=== PATIENT | female | born 1960 | race Two or more races ===

== ENCOUNTER 2024-08-20 10:10 | Outpatient (RCR) | payer OTHER, SELFPAY ==
--- NOTE | 2024-08-20 13:11 | CTCFLWUP_ITS ---
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 I reviewed Dr. aEston de la rosa and appreciated co nsult. Patient do not have any new complaints. Patient is scheduled for PET CT scan and bone marrow biopsy labs were drawn on August 15, 2018. Platelet count is 67,000. Treated with prednisone 07/18/2018: Platelet count 12,000. 07/25/2018: Platelet count 10,000. 09/11/2018: Patient has been taking prednisone 60 mg p.o. daily for last 4 weeks. 10/14/2018: Platelet count 26,000. 11/11/2018: Bone marrow biopsy and aspiration showed increased number of megakaryocytes. 11/26/2018: Platelet count 24,000. 12/01/2018?12/22/2018: Patient received 4 weekly doses of Rituxan. 12/08/2018: Platelet count 58,000. 03/03/2019: Platelet count 17,000. 03/10/2019: Promacta 50 mg p.o. daily started. 03/24/2019: Platelets 154,000AST 17 (0?32). . ALT 35 (0?32), 05/13/2019: Platelet count 692,000. ALT 63 (0?32) AST 73 (0?40), 05/15/2019: Decrease Promacta 25 mg p.o. Daily in view of the elevated liver function test. 05/29/2019: Platelet count 306,000, AST 39, ALT 42 05/02/2020: Platelet count 310,000, AST 41, ALT 53, T bili 0.4. 05/12/2020: CT scan of the abdomen and pelvis with contrast showed hepatomegaly measuring 19 cm. Splee n dimension was 13 cm. 05/13/2020: Patient was tested positive for Covid 19. She was asymptomatic. 05/26/2020 platelets 285,000, WBC 8.4, hemoglobin 12.6. August 15, 2020: Covid test negative. 08/29/2020: Platelet count 228,000. 10/28/2020: Platelet count 299,000, WBC 11.1, hemoglobin 13.7. 12/03/2020: Patient had shingles infection of the right lower chest. 12/05/2020: Platelet count 181,000, hemoglobin 13.1, WBC 5.8. 03/24/2021: Platelet count a hundred and nine thousand. Patient continues to be on Promacta 25 mg p.o . daily. 06/23/2021: Platelet count 251,000. 08/28/2021: Platelet count 290,000, hemoglobin 13.0, WBC 12.3. 09/26/2021: Laparoscopic splenectomy. 10/06/2021: Platelet count 825,000. 01/25/2022: Platelet count 520,000. 07/06/2022: Platelet count 425,000. 12/27/2022: Platelets 386,000, hemoglobin 15.1, MCV 90, WBC 11.7, ANC 5.4. 06/25/2023: Platelet count 420,000, WBC 17.0, ANC 10.0, hemoglobin 16.0. 07/02/2023: Platelet count 390,000, WBC 12.0, ANC 6.0, hemoglobin 16.3; T-cell large granular lymphoc ytes/T?LGLs 07/02/2023: Flow cytometry 07/02/2023: BCR-ABL 08/26/2023: Platelets 390,000, WBC 12.0, ANC 6.0, hemoglobin 16.3 11/22/2023: Platelets 372,000, WBC 12.6, ANC 6.0, hemoglobin 15.8 03/11/2024: Platelets 370,000, WBC 11.5, ANC 5.9, hemoglobin 15.0, MCV 92 06/15/2024: Platelets 385,000, WBC 12.2, ANC 5.1, hemoglobin 16.0, MCV 94, lymphs absolute 6.0 DIAGNOSIS: ITP (07/18/2018) failed on prednisone and rituximab. Responded well to Promacta. 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 Patient was asymptomatic. November 2020: Right lower chest shingles infection. T-cell large granular lymphocytes/ T- LGLs, 07/02/2023. 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 amitriptyline - 25 mg 1 tab Daily 2. atorvastatin - 20 mg 1 tab Daily 3. Basaglar KwikPen U-100 Insulin - 100 unit/mL (3 mL) 60 Units Daily 4. HumuLIN BR - 100 unit/mL 20 Unit Twice a Day 5. Jardiance - 25 mg 1 tab Daily 6. loratadine - 10 mg 1 tab Daily 7. losartan-hydrochlorothiazide - 100-25 mg 1 tab Daily 8. metFORMIN - 1,000 mg 1 tab Daily 9. Ozempic - 0.25 mg or 0.5 mg(2 mg/1.5 mL) 0.25 mg As directed Medications Last Reconciled by Robert Hernandez MA on 08/20/2024 ALLERGIES: No Known Drug Allergies REVIEW OF SYSTEMS: A complete 14-point review of systems was performed and is negative except as noted in interval histo ry. PHYSICAL EXAMINATION: VITAL SIGNS: Temperature?98.2, B/P?129/85, Oxygen?Saturation?97% Weight?203?lbs PAIN: 0 - No pain GENERAL APPEARANCE: Appears well, in no apparent distress, appropriately interactive. HEENT: Normocephalic, no temporal wasting, normal conjunctiva, no scleral icterus, normal hearing, li ps without lesions, neck normal range of motion. CARDIOVASCULAR: Not assessed. PULMONARY: Normal respiratory effort, no respiratory distress or use of accessory muscles, speaking i n full sentences, no tachypnea. EXTREMITIES: No pedal edema or cyanosis. SKIN: Normal skin appearance. NEUROLOGIC: Alert and ORIENTED x4. PSHYCHIATRIC: Appropriate affect, mood normal, behavior normal, intact thought and speech. LABORATORY DATA: I have personally reviewed and interpreted each of Ms. Rahman?s relevant lab tests findings are b elow: 08/18/2024 Labs shows WBC 11.8 hemoglobin 16.2 platelets 402 glucose 86 creatinine 0.57 IMPRESSION/PLAN: #1 ITP Patient has been treated for her ITP with prednisone and rituximab Patient was not responding to prednisone and Rituxan and was started on Promacta Patient also have splenectomy done on 09/26/2021 Patient's platelets are now normal Continue Promacta #2 T cells Patient was noted to have larger granular lymphocytes or T-LGL's on her peripheral smear Patient need bone marrow biopsy and PET CT scan Patient is already planned for the same by Dr. Elaine Reilly in [facility] CMP RETURN TO CLINIC: RTC in 2 months BILLING AND COMPLIANCE: I reviewed external records from providers outside my specialty as summarized above. I spent a total of 50 minutes on this patient?s care on the day of their visit excluding time spent related to any bi lled procedures. This time includes time spent with the patient as well as time spent documenting in the medical record, reviewing patients records and tests, obtaining history, placing orders, communi cating with other healthcare professionals, counseling the patient, family or caregiver, and/or care coordination for the diagnoses above. Electronically Signed by: Gurpreet Guevara MD T: 1:08 PM CC: PCP: Raghu Isaacs Referring: Raghu Isaacs This document was completed utilizing speech recognition software. Grammatical errors, random word in sertions, pronoun errors, and incomplete sentences are an occasional consequence of this system due t o software limitations, ambient noise, and hardware issues. Any formal questions or concerns about th e content, text or information contained within the body of this dictation should be directly address ed to the provider for clarification.
== END 2024-09-08 23:59 | disposition home or self-care (01) ==
LOC: SCTC 10:10
PROVIDERS: PCP Family Medicine; Referring Provider Family Medicine; Visit Provider Internal Medicine Hematology & Oncology
DX: D69.3 Immune thrombocytopenic purpura (principal)
CPT/HCPCS: 99213; G0463

== ENCOUNTER 2024-10-22 11:12 | Outpatient (RCR) | payer OTHER, SELFPAY ==
--- NOTE | 2024-11-08 14:58 | CTCFLWUP_ITS ---
Patient: ROBERT RAHMAN : 1960 Page 4 of 5 FOLLOW UP NOTE DATE OF SERVICE: 10/22/2024 NAME: ROBERT RAHMAN ACCOUNT: [id number] : 1960 AGE: 64 INTERVAL HISTORY: Patient was recently seen by blind eyeletter at [place]. I reviewed Dr. Mccormack note and appreciated consult. Patient do not have any new complaints. Patient is scheduled for PET CT scan and bone marrow biopsy labs were drawn on August 15, 2018. Platelet count is 67,000. Treated with prednisone 07/18/2018: Platelet count 12,000. 07/25/2018: Platelet count 10,000. 09/11/2018: Patient has been taking prednisone 60 mg p.o. daily for last 4 weeks. 10/14/2018: Platelet count 26,000. 11/11/2018: Bone marrow biopsy and aspiration showed increased number of megakaryocytes. 11/26/2018: Platelet count 24,000. 12/01/2018?12/22/2018: Patient received 4 weekly doses of Rituxan. 12/08/2018: Platelet count 58,000. 03/03/2019: Platelet count 17,000. 03/10/2019: Promacta 50 mg p.o. daily started. 03/24/2019: Platelets 154,000AST 17 (0?32). . ALT 35 (0?32), 05/13/2019: Platelet count 692,000. ALT 63 (0?32) AST 73 (0?40), 05/15/2019: Decrease Promacta 25 mg p.o. Daily in view of the elevated liver function test. 05/29/2019: Platelet count 306,000, AST 39, ALT 42 05/02/2020: Platelet count 310,000, AST 41, ALT 53, T bili 0.4. 05/12/2020: CT scan of the abdomen and pelvis with contrast showed hepatomegaly measuring 19 cm. Spleen dimension was 13 cm. 05/13/2020: Patient was tested positive for Covid 19. She was asymptomatic. 05/26/2020 platelets 285,000, WBC 8.4, hemoglobin 12.6. August 15, 2020: Covid test negative. 08/29/2020: Platelet count 228,000. 10/28/2020: Platelet count 299,000, WBC 11.1, hemoglobin 13.7. 12/03/2020: Patient had shingles infection of the right lower chest. 12/05/2020: Platelet count 181,000, hemoglobin 13.1, WBC 5.8. 03/24/2021: Platelet count a hundred and nine thousand. Patient continues to be on Promacta 25 mg p.o. daily. 06/23/2021: Platelet count 251,000. 08/28/2021: Platelet count 290,000, hemoglobin 13.0, WBC 12.3. 09/26/2021: Laparoscopic splenectomy. 10/06/2021: Platelet count 825,000. 01/25/2022: Platelet count 520,000. 07/06/2022: Platelet count 425,000. 12/27/2022: Platelets 386,000, hemoglobin 15.1, MCV 90, WBC 11.7, ANC 5.4. 06/25/2023: Platelet count 420,000, WBC 17.0, ANC 10.0, hemoglobin 16.0. 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 amitriptyline - 25 mg 1 tab Daily 2. atorvastatin - 20 mg 1 tab Daily 3. Basaglar KwikPen U-100 Insulin - 100 unit/mL (3 mL) 60 Units Daily 4. HumuLIN BR - 100 unit/mL 20 Unit Twice a Day 5. Jardiance - 25 mg 1 tab Daily 6. loratadine - 10 mg 1 tab Daily 7. losartan-hydrochlorothiazide - 100-25 mg 1 tab Daily 8. metFORMIN - 1,000 mg 1 tab Daily 9. Ozempic - 0.25 mg or 0.5 mg(2 mg/1.5 mL) 0.25 mg As directed Medications Last Reconciled by Erica Schuster MA on 10/22/2024 ALLERGIES: No Known Drug Allergies REVIEW OF SYSTEMS: A complete 14-point review of systems was performed and is negative except as noted in interval history. PHYSICAL EXAMINATION: VITAL SIGNS: Temperature?98.5, B/P?128/76, Oxygen?Saturation?97% Weight?197.6?lbs PAIN: 0 - No pain ECOG Performance Status: 0 - Asymptomatic and fully active GENERAL APPEARANCE: Appears well, in no apparent distress, appropriately interactive. HEENT: Normocephalic, no temporal wasting, normal conjunctiva, no scleral icterus, normal hearing, lips without lesions, neck normal range of motion. CARDIOVASCULAR: Not assessed. PULMONARY: Normal respiratory effort, no respiratory distress or use of accessory muscles, speaking in full sentences, no tachypnea. EXTREMITIES: No pedal edema or cyanosis. SKIN: Normal skin appearance. NEUROLOGIC: Alert and ORIENTED x4. PSHYCHIATRIC: Appropriate affect, mood normal, behavior normal, intact thought and speech. LABORATORY DATA: I have personally reviewed and interpreted each of the patient?s relevant lab tests, abnormal findings are below: Date 12/22/18 ??GLUCOSE,RANDOM?(mg/dL) 240?H ??BLOOD?UREA?NITROGEN?(mg/dL) 19?H ??CREATININE?(mg/dL) 0.70 ??SODIUM?(mmol/L) 147?H ??POTASSIUM?(mmol/L) 3.0?L ??CHLORIDE?(mmol/L) 109?H ??CrCl?(CandG)?(ml/min) 122.95 ??AST/SGOT?(Unit/L) 13?L ??ALT/SGPT?(Unit/L) 37 ??ALKALINE?PHOSPHATASE?(Unit/L) 59 ??BILIRUBIN,?TOTAL?(mg/dL) 0.6 ??PROTEIN?TOTAL?(gm/dl) 7.2 ??ALBUMIN,?SERUM?(gm/dl) 3.4?L ??GLOBULIN?(gm/dl) 3.8?H ??ALBUMIN/GLOBULIN?RATIO 0.9?L ??CALCIUM,?SERUM?(mg/dL) 8.3?L ??CALCIUM?SERUM?(CORRECTED)?(mg/dL) 8.8 ASSESSMENT/PLAN: #1 ITP Patient has been treated for her ITP with prednisone and rituximab Patient was not responding to prednisone and Rituxan and was started on Promacta Patient also have splenectomy done on 09/26/2021 Patient's platelets are now normal Continue Promacta #2 T cells Patient was noted to have larger granular lymphocytes or T-LGL's on her peripheral smear Patient need bone marrow biopsy and PET CT scan Patient is already planned for the same by Dr. Elaine Reilly in [facility] CMP RETURN TO CLINIC: 6 months BILLING AND COMPLIANCE: I reviewed external records from providers outside my specialty as summarized above. I spent a total of 50 minutes on this patient?s care on the day of their visit excluding time spent related to any billed procedures. This time includes time spent with the patient as well as time spent documenting in the medical record, reviewing patients records and tests, obtaining history, placing orders, communicating with other healthcare professionals, counseling the patient, family or caregiver, and/or care coordination for the diagnoses above. Electronically Signed by: Gurpreet Guevara MD T: 2:56 PM CC: PCP: Gurpreet Guevara Referring: Gurpreet Guevara This document was completed utilizing speech recognition software. Grammatical errors, random word insertions, pronoun errors, and incomplete sentences are an occasional consequence of this system due to software limitations, ambient noise, and hardware issues. Any formal questions or concerns about the content, text or information contained within the body of this dictation should be directly addressed to the provider for clarification.
== END 2024-11-06 23:59 | disposition home or self-care (01) ==
LOC: SCTC 11:12
PROVIDERS: PCP Family Medicine; Referring Provider Internal Medicine Hematology & Oncology; Visit Provider Internal Medicine Hematology & Oncology
DX: D69.3 Immune thrombocytopenic purpura (principal)
CPT/HCPCS: 99213; G0463

== ENCOUNTER 2024-12-03 10:23 | Outpatient (RCR) | payer OTHER, SELFPAY ==
--- NOTE | 2024-12-03 13:32 | CTCFLWUP_ITS ---
Patient: LOLA RAHMAN : 1960 Page 2 of 6 FOLLOW UP NOTE DATE OF SERVICE: 12/03/2024 NAME: LOLA RAHMAN ACCOUNT: [id number] : 1960 AGE: 64 INTERVAL HISTORY: Patient was recently seen by materials research engineer at [place]. I reviewed Dr. Mccormack note and appreciated consult. Patient do not have any new complaints. 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 For last 1 month she has been having subcutaneous bruises in multiple areas. She had a CBC drawn on 07/11/2018. Her platelet count was 11,000's. WBC E is 8.8 and hemoglobin is 12.8. CBC was repeated on 07/18/2018. Her platelet counts were again low at 12,000. Hemoglobin is 13.3 and WBC count is 8.5. A hematology consultation is requested for thrombocytopenia. She denies any other complaints. Denies any cough chest pain shortness of breath abdominal pain or leg cramps. She denies any vaginal bleeding or rectal bleeding. She denies any blood in the urine or stool. 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 acyclovir - 400 mg 1 tab Daily 2. amitriptyline - 25 mg 1 tab Daily 3. atorvastatin - 20 mg 1 tab Daily 4. Basaglar KwikPen U-100 Insulin - 100 unit/mL (3 mL) 60 Units Daily 5. HumuLIN BR - 100 unit/mL 20 Unit Twice a Day 6. Jardiance - 25 mg 1 tab Daily 7. loratadine - 10 mg 1 tab Daily 8. losartan-hydrochlorothiazide - 100-25 mg 1 tab Daily 9. metFORMIN - 1,000 mg 1 tab Daily 10. Ozempic - 0.25 mg or 0.5 mg(2 mg/1.5 mL) 0.25 mg As directed Medications Last Reconciled by Erica Schuster MA on 12/03/2024 ALLERGIES: No Known Drug Allergies REVIEW OF SYSTEMS: A complete 14-point review of systems was performed and is negative except as noted in interval history. PHYSICAL EXAMINATION: VITAL SIGNS: Temperature?99.1, B/P?124/82, Oxygen?Saturation?94% Weight?197?lbs PAIN: 2 - Mild pain ECOG Performance Status: 0 - Asymptomatic and fully active GENERAL APPEARANCE: Appears well, in no apparent distress, appropriately interactive. HEENT: Normocephalic, no temporal wasting, normal conjunctiva, no scleral icterus, normal hearing, lips without lesions, neck normal range of motion. CARDIOVASCULAR: Not assessed. PULMONARY: Normal respiratory effort, no respiratory distress or use of accessory muscles, speaking in full sentences, no tachypnea. EXTREMITIES: No pedal edema or cyanosis. SKIN: Normal skin appearance. NEUROLOGIC: Alert and ORIENTED x4. PSHYCHIATRIC: Appropriate affect, mood normal, behavior normal, intact thought and speech. LABORATORY DATA: I have personally reviewed and interpreted each of the patient?s relevant lab tests, abnormal findings are below: Date 12/15/18 12/22/18 ??WHITE?BLOOD?COUNT?(Thou/mm3) 8.3 11.2?H ??RED?BLOOD?COUNT?(Miln/mm3) 4.60 4.81 ??HEMOGLOBIN?(gm/dl) 12.7 13.3 ??HEMATOCRIT?(%) 39.0 40.9 ??PLATELET?COUNT?(Thou/mm3) 14?LL 40?L ??NEUTROPHILS?%,?AUTO?(%) 79 88?H ??LYMPH?%,?AUTO?(%) 13 9?L ??NEUTROPHILS,?AUTO?(Thou/mm3) 6.5 9.8?H ??GLUCOSE,RANDOM?(mg/dL) 270?H 240?H ??BLOOD?UREA?NITROGEN?(mg/dL) 15 19?H ??CREATININE?(mg/dL) 0.70 0.70 ??SODIUM?(mmol/L) 141 147?H ??POTASSIUM?(mmol/L) 3.5 3.0?L ??CHLORIDE?(mmol/L) 106 109?H ??CrCl?(CandG)?(ml/min) 125.46 122.95 ??AST/SGOT?(Unit/L) 18 13?L ??ALT/SGPT?(Unit/L) 32 37 ??ALKALINE?PHOSPHATASE?(Unit/L) 56 59 ??BILIRUBIN,?TOTAL?(mg/dL) 0.5 0.6 ??PROTEIN?TOTAL?(gm/dl) 6.4 7.2 ??ALBUMIN,?SERUM?(gm/dl) 3.1?L 3.4?L ??GLOBULIN?(gm/dl) 3.3 3.8?H ??ALBUMIN/GLOBULIN?RATIO 0.9?L 0.9?L ??CALCIUM,?SERUM?(mg/dL) 8.6 8.3?L ??CALCIUM?SERUM?(CORRECTED)?(mg/dL) 9.3 8.8 10/22/2024 ASSESSMENT/PLAN: #1 ITP Patient has been treated for her ITP with prednisone and rituximab Patient was not responding to prednisone and Rituxan and was started on Promacta Patient also have splenectomy done on 09/26/2021 Patient's platelets are now normal Continue Promacta #2 T cells Patient was noted to have larger granular lymphocytes or T-LGL's on her peripheral smear Bone marrow biopsy show no maligannacy \pet scan showed ovarian cyst . patient have lots of pain from that Refer to gynecology #3 Shingles Patient have lots of pain from her shingles No active lesions This is a herpetic neuralgia Will treat with acyclovir suppressive dose and gabapentin Advised to follow-up with the primary care CBC CMP ORDERS: Order # Description [id number] RETURN TO CLINIC: I will see her back in the clinic in 3 months. BILLING AND COMPLIANCE: I reviewed external records from providers outside my specialty as summarized above. I spent a total of 50 minutes on this patient?s care on the day of their visit excluding time spent related to any billed procedures. This time includes time spent with the patient as well as time spent documenting in the medical record, reviewing patients records and tests, obtaining history, placing orders, communicating with other healthcare professionals, counseling the patient, family or caregiver, and/or care coordination for the diagnoses above. Electronically Signed by: Gurpreet Guevara MD T: 1:30 PM CC: PCP: Gurpreet Guevara Referring: Gurpreet Guevara This document was completed utilizing speech recognition software. Grammatical errors, random word insertions, pronoun errors, and incomplete sentences are an occasional consequence of this system due to software limitations, ambient noise, and hardware issues. Any formal questions or concerns about the content, text or information contained within the body of this dictation should be directly addressed to the provider for clarification.
== END 2024-12-07 23:59 | disposition home or self-care (01) ==
LOC: SCTC 10:23
PROVIDERS: PCP Family Medicine; Referring Provider Internal Medicine Hematology & Oncology; Visit Provider Internal Medicine Hematology & Oncology
DX: D69.3 Immune thrombocytopenic purpura (principal); N83.209 Unspecified ovarian cyst, unspecified side; B02.9 Zoster without complications
CPT/HCPCS: 99213; G0463

== ENCOUNTER 2025-02-18 11:27 | Outpatient (RCR) | payer OTHER, SELFPAY ==
--- NOTE | 2025-02-28 22:20 | CTCFLWUP_ITS ---
Patient: LOLA RAHMAN : 1960 Page 6 of 7 FOLLOW UP NOTE DATE OF SERVICE: 02/18/2025 NAME: LOLA RAHMAN ACCOUNT: [id number] : 1960 AGE: 64 INTERVAL HISTORY: Subjective: Chief Complaint Ongoing shingles pain, high hemoglobin levels History of Present Illness Lola Isaacs presents with ongoing shingles-related pain and elevated hemoglobin levels. The patient reports experiencing shingles with associated pain, which has been improving slowly. She is currently taking gabapentin 300 mg twice daily for pain management, which was previously prescribed at a higher dose (600 mg three times daily) but caused dizziness, leading to discontinuation after a year. The patient is also taking acyclovir tablets twice daily, in the morning and evening, as prescribed for shingles treatment. The patient reports that her pain is a little better than before but still present. She inquires about the possibility of increasing her medication dosage or adding another medication to manage the pain more effectively. The slow improvement in her condition is impacting her daily life, though the extent of this impact is not explicitly stated. Regarding treatment adherence, the patient reports taking her medications as prescribed, including both gabapentin and acyclovir. However, she mentions that Prometa was discontinued after a procedure, though the details of this procedure are not provided. The patient has had recent healthcare interactions, including a visit to a healthcare facility [facility] where she was prescribed the higher dose of gabapentin. She also reports seeing Dr. Shaver at the end of November or beginning of December. However, she has not followed up with the tuckpointer as previously recommended for an ovarian cyst, nor has she seen Dr. Shaver for the PET-CT scan ordered in September. Medications and Supplements - Prometa - Discontinued after procedure. - Gabapentin 300 mg by mouth twice daily - For shingles pain. - Previously took 600 mg 3 times a day but felt very dizzy and stopped after a year. - Acyclovir tablet twice daily - For shingles. - Taken in the morning and evening. Review of Systems General: Positive for fatigue. Skin: Positive for shingles. Neurological: Positive for dizziness (historical). Other: Positive for pain related to shingles. 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 For last 1 month she has been having subcutaneous bruises in multiple areas. She had a CBC drawn on 07/11/2018. Her platelet count was 11,000's. WBC E is 8.8 and hemoglobin is 12.8. CBC was repeated on 07/18/2018. Her platelet counts were again low at 12,000. Hemoglobin is 13.3 and WBC count is 8.5. A hematology consultation is requested for thrombocytopenia. She denies any other complaints. Denies any cough chest pain shortness of breath abdominal pain or leg cramps. She denies any vaginal bleeding or rectal bleeding. She denies any blood in the urine or stool. 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 acyclovir - 400 mg 1 tab twice Daily 2. acyclovir - 5 % 1 gm Daily 3. amitriptyline - 25 mg 1 tab Daily 4. atorvastatin - 20 mg 1 tab Daily 5. Basaglar KwikPen U-100 Insulin - 100 unit/mL (3 mL) 60 Units Daily 6. gabapentin - 300 mg 1 Capsule three times daily as needed 7. HumuLIN BR - 100 unit/mL 20 Unit Twice a Day 8. Jardiance - 25 mg 1 tab Daily 9. loratadine - 10 mg 1 tab Daily 10. losartan-hydrochlorothiazide - 100-25 mg 1 tab Daily 11. metFORMIN - 1,000 mg 1 tab Daily 12. Ozempic - 0.25 mg or 0.5 mg(2 mg/1.5 mL) 0.25 mg As directed Medications Last Reconciled by Lola Hernandez MA on 02/18/2025 ALLERGIES: No Known Drug Allergies REVIEW OF SYSTEMS: A complete 14-point review of systems was performed and is negative except as noted in interval history. PHYSICAL EXAMINATION: VITAL SIGNS: Temperature?98, B/P?141/85, Oxygen?Saturation?95% Weight?200?lbs PAIN: 0 - No pain ECOG Performance Status: 0 - Asymptomatic and fully active GENERAL APPEARANCE: Appears well, in no apparent distress, appropriately interactive. HEENT: Normocephalic, no temporal wasting, normal conjunctiva, no scleral icterus, normal hearing, lips without lesions, neck normal range of motion. CARDIOVASCULAR: Not assessed. PULMONARY: Normal respiratory effort, no respiratory distress or use of accessory muscles, speaking in full sentences, no tachypnea. EXTREMITIES: No pedal edema or cyanosis. SKIN: Normal skin appearance. NEUROLOGIC: Alert and ORIENTED x4. PSHYCHIATRIC: Appropriate affect, mood normal, behavior normal, intact thought and speech. LABORATORY DATA: I have personally reviewed and interpreted each of the patient?s relevant lab tests, abnormal findings are below: Date 12/15/18 12/22/18 ??WHITE?BLOOD?COUNT?(Thou/mm3) 8.3 11.2?H ??RED?BLOOD?COUNT?(Miln/mm3) 4.60 4.81 ??HEMOGLOBIN?(gm/dl) 12.7 13.3 ??HEMATOCRIT?(%) 39.0 40.9 ??PLATELET?COUNT?(Thou/mm3) 14?LL 40?L ??NEUTROPHILS?%,?AUTO?(%) 79 88?H ??LYMPH?%,?AUTO?(%) 13 9?L ??NEUTROPHILS,?AUTO?(Thou/mm3) 6.5 9.8?H ??GLUCOSE,RANDOM?(mg/dL) 270?H 240?H ??BLOOD?UREA?NITROGEN?(mg/dL) 15 19?H ??CREATININE?(mg/dL) 0.70 0.70 ??SODIUM?(mmol/L) 141 147?H ??POTASSIUM?(mmol/L) 3.5 3.0?L ??CHLORIDE?(mmol/L) 106 109?H ??CrCl?(CandG)?(ml/min) 125.46 122.95 ??AST/SGOT?(Unit/L) 18 13?L ??ALT/SGPT?(Unit/L) 32 37 ??ALKALINE?PHOSPHATASE?(Unit/L) 56 59 ??BILIRUBIN,?TOTAL?(mg/dL) 0.5 0.6 ??PROTEIN?TOTAL?(gm/dl) 6.4 7.2 ??ALBUMIN,?SERUM?(gm/dl) 3.1?L 3.4?L ??GLOBULIN?(gm/dl) 3.3 3.8?H ??ALBUMIN/GLOBULIN?RATIO 0.9?L 0.9?L ??CALCIUM,?SERUM?(mg/dL) 8.6 8.3?L ??CALCIUM?SERUM?(CORRECTED)?(mg/dL) 9.3 8.8 Labs from 02/12/2025 shows white WBC 13.5 hemoglobin 16.2 platelets 369 lymphocytes 5.7 high WBC high at 13.5 creatinine 0.50 sodium 145 high alk phos 88 AST 25 ALT 22 ASSESSMENT/PLAN: Lola Isaacs, a female patient with a history of shingles, presents with ongoing pain and elevated hemoglobin levels. Shingles with Post-Herpetic Neuralgia Assessment: Patient reports ongoing pain from shingles, though slightly improved. Currently taking gabapentin 300 mg twice daily and acyclovir twice daily, which has provided some relief but not complete resolution of symptoms. Previous attempt at higher gabapentin dose (600 mg TID) resulted in dizziness, leading to discontinuation after one year. Plan: - Increase gabapentin to 300 mg TID - Continue acyclovir as prescribed (twice daily) - Prescribe acyclovir cream for topical use - Refer to infectious disease specialist for further management of shingles - Follow up in 4 weeks to assess response to treatment changes Elevated Hemoglobin Assessment: Patient's hemoglobin levels are increasing, potentially due to inadequate oxygenation during sleep. A PET-CT scan was previously ordered in September, but results are not mentioned. Differential diagnosis includes blood disorders and sleep-related breathing disorders. Plan: - Initiate phlebotomy if hemoglobin continues to rise - Refer to sleep specialist for evaluation of potential sleep-related breathing disorders - Follow up in 4 weeks to reassess hemoglobin levels and utilization review coordinator recommendations Ovarian Cyst Assessment: Patient was previously advised to see a tuckpointer for an ovarian cyst but has not followed through with this recommendation. 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 patient have lots of pain from that Refer to gynecology ORDERS: Order # Description [id number] CBC with Auto Diff [id number] CRISTIN - 2 Mutation Quant + Testosterone; Total + Erythropoieten Level [id number] Therapeutic Phlebotomy, 1 Unit RETURN TO CLINIC: 2 to 3 weeks BILLING AND COMPLIANCE: I reviewed external records from providers outside my specialty as summarized above. I spent a total of 50 minutes on this patient?s care on the day of their visit excluding time spent related to any billed procedures. This time includes time spent with the patient as well as time spent documenting in the medical record, reviewing patients records and tests, obtaining history, placing orders, communicating with other healthcare professionals, counseling the patient, family or caregiver, and/or care coordination for the diagnoses above. Electronically Signed by: {Object.Sanct_ID*PnP.NameFL@M}, {Object.Sanct_ID*PnP.Suffix@U} D: {Object.Sanct_Date} T: {Object.Sanct_Time} CC: PCP: Raghu Isaacs Referring: Raghu Isaacs This document was completed utilizing speech recognition software. Grammatical errors, random word insertions, pronoun errors, and incomplete sentences are an occasional consequence of this system due to software limitations, ambient noise, and hardware issues. Any formal questions or concerns about the content, text or information contained within the body of this dictation should be directly addressed to the provider for clarification.
== END 2025-03-08 23:59 | disposition home or self-care (01) ==
LOC: SCTC 11:27
PROVIDERS: PCP Family Medicine; Referring Provider Family Medicine; Visit Provider Internal Medicine Hematology & Oncology
DX: B02.29 Other postherpetic nervous system involvement (principal); D69.3 Immune thrombocytopenic purpura; N83.209 Unspecified ovarian cyst, unspecified side; R71.8 Other abnormality of red blood cells; Z90.81 Acquired absence of spleen
CPT/HCPCS: 99212; G0463

== ENCOUNTER 2025-03-22 11:12 | Outpatient (AMB) | payer OTHER, SELFPAY ==
--- NOTE | 2025-03-22 11:21 | GYNCLNT_ITS ---
Vital Signs 03/22/25 11:40 Height 1.57 m Height Method Stated Weight 88.621 kg Weight Measurement Method Standing Scale BMI 35.7 BP 122/75 Blood Pressure Source Automatic Cuff Blood Pressure Location Left Upper Arm Position Sitting Respiration 18 Pulse 90 Pulse Source Monitor Temp 96.4 F L Temp Source Oral Pulse Oximetry (%) 96 Oxygen Delivery Method Room Air Allergies/Home Meds Allergies & Medications Allergies No Known Allergies Allergy (Verified 03/22/25 11:41) Medication Reconciliation eltrombopag olamine 25 mg tablet (Promacta) 25 mg PO QDAY 06/13/20 [History Confirmed 03/22/25] amitriptyline 10 mg tablet 10 mg PO QDAY 09/25/21 [History Confirmed 03/22/25] atorvastatin 20 mg tablet 20 mg PO QDAY 09/25/21 [History Confirmed 03/22/25] empagliflozin 25 mg tablet (Jardiance) 25 mg PO QAM 09/25/21 [History Confirmed 03/22/25] insulin glargine 100 unit/mL (3 mL) subcutaneous pen (Basaglar KwikPen U-100 Insulin) 60 unit subcut QAM 09/25/21 [History Confirmed 03/22/25] losartan 100 mg-hydrochlorothiazide 25 mg tablet 1 tab PO QDAY 09/25/21 [History Confirmed 03/22/25] semaglutide 1 mg/dose (2 mg/1.5 mL) subcutaneous pen injector (Ozempic) 1 mg subcut QWEEK 09/25/21 [History Confirmed 03/22/25] sitagliptin phos 100 mg-metformin ER 1,000 mg tablet,extend rel 24h mp (Janumet XR) 1 tab PO HS 09/25/21 [History Confirmed 03/22/25] amoxicillin 875 mg-potassium clavulanate 125 mg tablet (Augmentin) 1 tab PO BID #10 tabs 10/06/21 [Rx Confirmed 03/22/25] aspirin 81 mg capsule 81 mg PO QDAY #30 caps 10/06/21 [Rx Confirmed 03/22/25] doxycycline hyclate 100 mg tablet 100 mg PO BID #10 tabs 10/06/21 [Rx Confirmed 03/22/25] Intake Visit Data Collection New Patient or Established: Established Patient (seen at [facility] within 3 years) Reason for Visit:: OVARIAN CYST Seen by Clinical Staff ONLY (RN/MA): No Top Loader Required: Yes Top Loader's name/title: VIOLETTA MASTERSON Do You Feel Safe at Home: Yes Authorities Contacted: N/A PCP or OBGYN visit in last 3 months: Yes Hx Now: No Are you currently on any form of Control: No Pain Present Currently: No Pain Scale Used: Sainz-Hutchison/Numerical Pain scale:: 0 Smoking Status Smoking Status: Never smoker Blood Bank Order Control 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 history Blood Bank Order Control Clerk History Menopausal: Yes If menopausal, at what age did it occur: 55 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 1. Little interest or pleasure in doing things: not at all 2. Feeling down, depressed, or hopeless: not at all Total score: 0 PHQ-9 3. Trouble falling or staying asleep, or sleeping too much: Not at all 4. Feeling tired or having little energy: Not at all 5. Poor appetite or overeating: Not at all 6. Feeling bad about yourself - or that you are a failure or have let yourself or your family down: Not at all 7. Trouble concentrating on things, such as reading the newspaper or watching television: Not at all 8. Moving or speaking so slowly that other people could have noticed? - Or the opposite - being so fidgety or restless that you have been moving around a lot more than usual: not at all 9. Thoughts that you would be better off or of hurting yourself in some way: Not at all Total score: 0 Source: Developed by Drs. Calvin Leal, Selma Marin, Ruddy Ribera and colleagues, with an educational deion from [employer]. Depression screen completed yes Social History Living Situation History Housing: House Tobacco History Smoking Status: Never smoker Alcohol History Alcohol Intake: Never Domestic Abuse History Do You Feel Safe at Home: Yes History of Present Illness HPI Narrative Lola Isaacs presents for evaluation of a right ovarian cyst discovered on imaging. She has a complex medical history including diabetes, hypertension, immune thrombocytopenia (ITP), recent treatment for shingles-related pain, and elevated hemoglobin levels. The patient reports experiencing back pain, which she associates with household activities such as sweeping or bumping into objects. However, it is noted that the ovarian cyst is unlikely to be the cause of her back pain. Lola has been aware of the cyst for some time, with imaging studies from 2021, 2022, and 2024 consistently showing its presence. The most recent pelvic ultrasound from 2021 revealed a septated right ovarian cystic mass measuring 5.6 x 4.6 x 5.2 centimeters. A subsequent MRI confirmed the presence of the cyst without any concerning features. Lola's medical history is significant for ITP, previously treated with prednisone and rituximab. She initially did not respond to prednisone and was started on Promacta. In 2021, she underwent a splenectomy, after which her platelet counts normalized. She has a history of intermittent gum bleeds and nosebleeds, with platelet counts as low as 12,000 in the past year. Additionally, Lola has been diagnosed with large granular lymphocytes and has undergone bone marrow biopsy, which did not show any malignancy. The patient is currently completing treatment for postherpetic neuralgia following a shingles outbreak. Her current medications include metformin, Ozempic, losartan, loratadine, Jardiance, Basaglar, Humulin, gabapentin (300mg TID), amitriptyline, and acyclovir. ROS: Musculoskeletal: Positive for back pain, exacerbated by housework activities like sweeping. Diagnostic Test Results and Labs: - Platelet count: as low as 12,000 (within the last year) - Pelvic ultrasound (02/2022): Right ovarian cystic mass, septated, measuring 5.6 x 4.6 x 5.2 cm - MRI (date not specified): Uterus: 9 x 4 x 5 cm Endometrial stripe: not thickened No discrete uterine mass Right ovarian cyst: septated, no mural thickening - Bone Mineral Density (09/2022): Osteopenia on lumbar and hip measurements - PET scan (09/26/2024): Avid left parotid lesion Mild FDG uptake in cervical chain lymph nodes Mild pulmonary edema Cholelithiasis Mildly FDG-avid lymph node in right common iliac chain: 1.1 x 0.8 cm Right ovarian cyst: 5.6 cm Mild FDG uptake throughout bone marrow Exam General General Appearance: alert, in no apparent distress and healthy appearing Head Head exam: atraumatic Neck Neck exam: Present normal inspection and trachea midline Chest Chest inspection: Present normal inspection and symmetric chest wall rise External exam: Present normal external exam; Absent tenderness Neuro Neurological exam: Present oriented X3 Psych Psychiatric exam: Present normal affect and normal mood Office Procedures OB Clinic LOC & Office Proc's Nursing/Assessment Patient Status: Established Patient OB Clinic Nursing Assessment: Medication Reconciliation, Update PMH in EMR and Vital Signs OB Clinic Coordination of Care: Complex Care and Chronic Disease 1-5, Consent,records obtained, informed consent, Education Simp Pt/Fam, Lab and Imaging orders, Results/Orders obtained and Staff clarify orders Established Patient Charge Established Patient Point Assignment: 105 Established Patient Point Charge: EP Level 3 (80-115) Assessment & Plan Diagnosis / Problem List (1) Lymphocytic leukemia: Status: Acute (2) Acute ITP: Status: Acute (3) Right ovarian cyst: Status: Acute Plan Right ovarian cyst Assessment: Persistent right ovarian cyst measuring 5.6 x 4.6 x 5.2 cm, initially identified on pelvic ultrasound in February 2022. MRI confirmed septated cyst without mural thickening. PET scan () reaffirmed 5.6 cm right ovarian cyst. Cyst stable in size since 2021. Patient reports back pain with activities like sweeping, likely unrelated to cyst. Malignancy less likely but not ruled out. 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 PET scan () showed avid left parotid lesion, mild FDG uptake in cervical chain lymph nodes, mildly FDG-avid lymph node in right common iliac chain (1.1 x 0.8 cm). Mild FDG uptake throughout bone marrow. Findings suggest ongoing disease activity. Plan: - Continue follow-up with hematology/oncology for management Immune thrombocytopenia (ITP) Assessment: History of ITP with platelet counts as low as 12,000 in past year. Previously treated with prednisone, rituximab, then Promacta. Splenectomy in 2021, now normal platelet counts. Large granular lymphocytes noted on peripheral smear, bone marrow biopsy negative for malignancy. Plan: - Continue current management - Follow up with hematology as scheduled Postherpetic neuralgia Assessment: Currently finishing treatment following shingles. Plan: - Continue gabapentin 300 mg TID as prescribed Osteopenia Assessment: Bone mineral density scan from September 2022 showed osteopenia in lumbar and hip measurements. Plan: - Continue current management
[2025-03-22 11:40] VITALS: BP 122/75; PULSE 90; RESP 18; TEMP 35.8; O2SAT 96; BMI 35.7
== END 2025-03-22 11:54 | disposition home or self-care (01) ==
LOC: HODSOBC 11:12
PROVIDERS: Supervising Provider Obstetrics & Gynecology; Visit Provider Obstetrics & Gynecology
DX: N83.201 Unspecified ovarian cyst, right side (principal); C91.60 Prolymphocytic leukemia of T-cell type not having achieved remission; D69.3 Immune thrombocytopenic purpura; B02.29 Other postherpetic nervous system involvement; M85.89 Other specified disorders of bone density and structure, multiple sites; E11.9 Type 2 diabetes mellitus without complications; I10 Essential (primary) hypertension; Z79.4 Long term (current) use of insulin; Z79.84 Long term (current) use of oral hypoglycemic drugs; Z79.85 Long-term (current) use of injectable non-insulin antidiabetic drugs; Z79.82 Long term (current) use of aspirin; Z79.899 Other long term (current) drug therapy
CPT/HCPCS: 99213; G0463

== ENCOUNTER 2025-04-05 13:48 | Outpatient (RCR) | payer OTHER, SELFPAY ==
[2025-03-15 14:50] LABS: Basophils # (Auto) 0.1 Thou/mm3 (0.0-0.2); Basophils % (Auto) 1 % (0-2.5); Eosinophils # (Auto) 0.2 Thou/mm3 (0.0-0.5); Eosinophils % (Auto) 2 % (0-10); Hematocrit 46.4 % (36.0-46.0); Hemoglobin 16.0 g/dL (12.0-16.0); Immature Granulocytes Auto 0.04 Thou/mm3 (0.00-0.00); Lymphocytes # (Auto) 5.0 Thou/mm3 (1.0-4.8); Lymphocytes % (Auto) 35 % (10-50); Mean Corpuscular HGB Conc 34.5 g/dl (31.0-37.0); Mean Corpuscular Hemoglobin 30.8 pg (25.0-35.0); Mean Corpuscular Volume 89 fL (80-100); Monocytes # (Auto) 1.1 Thou/mm3 (0.0-0.8); Monocytes % (Auto) 8 % (0-12); Neutrophils # (Auto) 7.8 Thou/mm3 (1.8-7.7); Neutrophils % (Auto) 55 % (37-80); Nucleated Red Blood Cell # 0.00 Thou/mm3 (0.00-0.00); Nucleated Red Blood Cell % 0 /100 WBC (0); Platelet Count 331 Thou/mm3 (140-440); RDW Standard Deviation 48.6 fL (36.4-46.3); Red Blood Count 5.19 Miln/mm3 (4.00-5.20); White Blood Count 14.2 Thou/mm3 (3.6-11.0)
[2025-03-22 15:10] LABS: Basophils # (Auto) 0.1 Thou/mm3 (0.0-0.2); Basophils % (Auto) 1 % (0-2.5); Eosinophils # (Auto) 0.2 Thou/mm3 (0.0-0.5); Eosinophils % (Auto) 1 % (0-10); Hematocrit 47.0 % (36.0-46.0); Hemoglobin 15.9 g/dL (12.0-16.0); Immature Granulocytes Auto 0.04 Thou/mm3 (0.00-0.00); Lymphocytes # (Auto) 5.3 Thou/mm3 (1.0-4.8); Lymphocytes % (Auto) 36 % (10-50); Mean Corpuscular HGB Conc 33.8 g/dl (31.0-37.0); Mean Corpuscular Hemoglobin 31.2 pg (25.0-35.0); Mean Corpuscular Volume 92 fL (80-100); Monocytes # (Auto) 1.0 Thou/mm3 (0.0-0.8); Monocytes % (Auto) 7 % (0-12); Neutrophils # (Auto) 8.0 Thou/mm3 (1.8-7.7); Neutrophils % (Auto) 55 % (37-80); Nucleated Red Blood Cell # 0.00 Thou/mm3 (0.00-0.00); Nucleated Red Blood Cell % 0 /100 WBC (0); Platelet Count 330 Thou/mm3 (140-440); RDW Standard Deviation 50.5 fL (36.4-46.3); Red Blood Count 5.09 Miln/mm3 (4.00-5.20); White Blood Count 14.6 Thou/mm3 (3.6-11.0)
[2025-03-29 15:18] LABS: Basophils # (Auto) 0.1 Thou/mm3 (0.0-0.2); Basophils % (Auto) 1 % (0-2.5); Eosinophils # (Auto) 0.1 Thou/mm3 (0.0-0.5); Eosinophils % (Auto) 1 % (0-10); Hematocrit 45.4 % (36.0-46.0); Hemoglobin 15.1 g/dL (12.0-16.0); Immature Granulocytes Auto 0.03 Thou/mm3 (0.00-0.00); Lymphocytes # (Auto) 4.5 Thou/mm3 (1.0-4.8); Lymphocytes % (Auto) 38 % (10-50); Mean Corpuscular HGB Conc 33.3 g/dl (31.0-37.0); Mean Corpuscular Hemoglobin 31.1 pg (25.0-35.0); Mean Corpuscular Volume 93 fL (80-100); Monocytes # (Auto) 0.9 Thou/mm3 (0.0-0.8); Monocytes % (Auto) 7 % (0-12); Neutrophils # (Auto) 6.4 Thou/mm3 (1.8-7.7); Neutrophils % (Auto) 53 % (37-80); Nucleated Red Blood Cell # 0.00 Thou/mm3 (0.00-0.00); Nucleated Red Blood Cell % 0 /100 WBC (0); Platelet Count 328 Thou/mm3 (140-440); RDW Standard Deviation 49.9 fL (36.4-46.3); Red Blood Count 4.86 Miln/mm3 (4.00-5.20); White Blood Count 12.0 Thou/mm3 (3.6-11.0)
[2025-04-05 14:22] LABS: Basophils # (Auto) 0.1 Thou/mm3 (0.0-0.2); Basophils % (Auto) 1 % (0-2.5); Eosinophils # (Auto) 0.1 Thou/mm3 (0.0-0.5); Eosinophils % (Auto) 1 % (0-10); Hematocrit 44.3 % (36.0-46.0); Hemoglobin 14.6 g/dL (12.0-16.0); Immature Granulocytes Auto 0.03 Thou/mm3 (0.00-0.00); Lymphocytes # (Auto) 5.5 Thou/mm3 (1.0-4.8); Lymphocytes % (Auto) 41 % (10-50); Mean Corpuscular HGB Conc 33.0 g/dl (31.0-37.0); Mean Corpuscular Hemoglobin 30.6 pg (25.0-35.0); Mean Corpuscular Volume 93 fL (80-100); Monocytes # (Auto) 0.9 Thou/mm3 (0.0-0.8); Monocytes % (Auto) 6 % (0-12); Neutrophils # (Auto) 6.8 Thou/mm3 (1.8-7.7); Neutrophils % (Auto) 51 % (37-80); Nucleated Red Blood Cell # 0.00 Thou/mm3 (0.00-0.00); Nucleated Red Blood Cell % 0 /100 WBC (0); Platelet Count 317 Thou/mm3 (140-440); RDW Standard Deviation 50.3 fL (36.4-46.3); Red Blood Count 4.77 Miln/mm3 (4.00-5.20); White Blood Count 13.3 Thou/mm3 (3.6-11.0)
[2025-04-05 15:36] LABS: Lymphocytes (Manual) 40 % (20-44); Monocytes (Manual) 4 % (2-9); Neutrophils (Manual) 56 % (50-70); Smudge Cells Few
[2025-04-05 15:37] LABS: Macrocytosis Few; Microcytosis Few
== END 2025-04-08 23:59 | disposition home or self-care (01) ==
LOC: SCTC 13:48
PROVIDERS: PCP Family Medicine; Referring Provider Family Medicine; Visit Provider Internal Medicine Hematology & Oncology
DX: D69.3 Immune thrombocytopenic purpura (principal); R71.8 Other abnormality of red blood cells; N83.209 Unspecified ovarian cyst, unspecified side; B02.29 Other postherpetic nervous system involvement
CPT/HCPCS: 36415; 85025

== ENCOUNTER 2025-04-14 13:36 | Outpatient (RCR) | payer OTHER, SELFPAY ==
--- NOTE | 2025-04-19 03:05 | CTCFLWUP_ITS ---
Patient: LOLA RAHMAN : 1960 Page 5 of 7 FOLLOW UP NOTE DATE OF SERVICE: 04/14/2025 NAME: LOLA RAHMAN ACCOUNT: [id number] : 1960 AGE: 64 INTERVAL HISTORY: Subjective: Chief Complaint Doing better now after she has been treated with Macrobid. Patient advised to continue acyclovir. Her pain has decreased. She is still have some ongoing pain. History of Present Illness Lola Isaacs presents with ongoing shingles-related pain and elevated hemoglobin levels. The patient reports experiencing shingles with associated pain, which has been improving slowly. She is currently taking gabapentin 300 mg twice daily for pain management, which was previously prescribed at a higher dose (600 mg three times daily) but caused dizziness, leading to discontinuation after a year. The patient is also taking acyclovir tablets twice daily, in the morning and evening, as prescribed for shingles treatment. The patient reports that her pain is a little better than before but still present. She inquires about the possibility of increasing her medication dosage or adding another medication to manage the pain more effectively. The slow improvement in her condition is impacting her daily life, though the extent of this impact is not explicitly stated. Regarding treatment adherence, the patient reports taking her medications as prescribed, including both gabapentin and acyclovir. However, she mentions that Prometa was discontinued after a procedure, though the details of this procedure are not provided. The patient has had recent healthcare interactions, including a visit to a [facility] where she was prescribed the higher dose of gabapentin. She also reports seeing Dr. Shaver at the end of November or beginning of December. However, she has not followed up with the pot lining supervisor as previously recommended for an ovarian cyst, nor has she seen Dr. Shaver for the PET-CT scan ordered in September. Medications and Supplements - Prometa - Discontinued after procedure. - Gabapentin 300 mg by mouth twice daily - For shingles pain. - Previously took 600 mg 3 times a day but felt very dizzy and stopped after a year. - Acyclovir tablet twice daily - For shingles. - Taken in the morning and evening. Review of Systems General: Positive for fatigue. Skin: Positive for shingles. Neurological: Positive for dizziness (historical). Other: Positive for pain related to shingles. 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 For last 1 month she has been having subcutaneous bruises in multiple areas. She had a CBC drawn on 07/11/2018. Her platelet count was 11,000's. WBC E is 8.8 and hemoglobin is 12.8. CBC was repeated on 07/18/2018. Her platelet counts were again low at 12,000. Hemoglobin is 13.3 and WBC count is 8.5. A hematology consultation is requested for thrombocytopenia. She denies any other complaints. Denies any cough chest pain shortness of breath abdominal pain or leg cramps. She denies any vaginal bleeding or rectal bleeding. She denies any blood in the urine or stool. 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 acyclovir - 5 % 1 gm Daily 2. acyclovir - 400 mg 1 tab twice daily 3. amitriptyline - 25 mg 1 tab Daily 4. atorvastatin - 20 mg 1 tab Daily 5. Basaglar KwikPen U-100 Insulin - 100 unit/mL (3 mL) 60 Units Daily 6. gabapentin - 300 mg 2 Capsule 2 capsule every 8 hrs as needed for pain 7. HumuLIN BR - 100 unit/mL 20 Unit Twice a Day 8. Jardiance - 25 mg 1 tab Daily 9. loratadine - 10 mg 1 tab Daily 10. losartan-hydrochlorothiazide - 100-25 mg 1 tab Daily 11. metFORMIN - 1,000 mg 1 tab Daily 12. Ozempic - 0.25 mg or 0.5 mg(2 mg/1.5 mL) 0.25 mg As directed Medications Last Reconciled by Lola Hernandez MA on 04/14/2025 ALLERGIES: No Known Drug Allergies REVIEW OF SYSTEMS: A complete 14-point review of systems was performed and is negative except as noted in interval history. PHYSICAL EXAMINATION: VITAL SIGNS: Temperature?99.2, B/P?123/84, Oxygen?Saturation?93% Weight?193?lbs (Change?since?04/05/25:?-4.2?lbs) PAIN: 6 - Severe pain ECOG Performance Status: 1 - Symptomatic; ambulatory; restricted in strenuous activity GENERAL APPEARANCE: Appears well, in no apparent distress, appropriately interactive. HEENT: Normocephalic, no temporal wasting, normal conjunctiva, no scleral icterus, normal hearing, lips without lesions, neck normal range of motion. CARDIOVASCULAR: Not assessed. PULMONARY: Normal respiratory effort, no respiratory distress or use of accessory muscles, speaking in full sentences, no tachypnea. EXTREMITIES: No pedal edema or cyanosis. SKIN: Normal skin appearance. NEUROLOGIC: Alert and ORIENTED x4. PSHYCHIATRIC: Appropriate affect, mood normal, behavior normal, intact thought and speech. LABORATORY DATA: I have personally reviewed and interpreted each of the patient?s relevant lab tests, abnormal findings are below: Date 03/15/25 03/22/25 03/29/25 04/05/25 ??WHITE?BLOOD?COUNT?(Thou/mm3) 14.2?H 14.6?H 12.0?H 13.3?H ??RED?BLOOD?COUNT?(Miln/mm3) 5.19 5.09 4.86 4.77 ??HEMOGLOBIN?(gm/dl) 16.0 15.9 15.1 14.6 ??HEMATOCRIT?(%) 46.4?H 47.0?H 45.4 44.3 ??PLATELET?COUNT?(Thou/mm3) 331 330 328 317 ??NEUTROPHILS?%,?AUTO?(%) 55 55 53 51 ??LYMPH?%,?AUTO?(%) 35 36 38 41 ??NEUTROPHILS,?AUTO?(Thou/mm3) 7.8?H 8.0?H 6.4 6.8 ASSESSMENT/PLAN: Lola Isaacs, a female patient with a history of shingles, presents with ongoing pain and elevated hemoglobin levels. Shingles with Post-Herpetic Neuralgia Assessment: Patient reports ongoing pain from shingles, though slightly improved. Currently taking gabapentin 300 mg twice daily and acyclovir twice daily, which has provided some relief but not complete resolution of symptoms. Previous attempt at higher gabapentin dose (600 mg TID) resulted in dizziness, leading to discontinuation after one year. Reassured patient that patient's heart rate is normal and she feels pain only when she is alone She says she does not feel pain when she is busy Patient may have psychological component to the pain Continue current her gabapentin and acyclovir Elevated Hemoglobin Assessment: Patient's hemoglobin levels are increasing, potentially due to inadequate oxygenation during sleep. A PET-CT scan was previously ordered in September, but results are not mentioned. Differential diagnosis includes blood disorders and sleep-related breathing disorders. Plan: - Initiate phlebotomy if hemoglobin continues to rise - Refer to sleep specialist for evaluation of potential sleep-related breathing disorders - Follow up in 4 weeks to reassess hemoglobin levels and retail merchandising specialist recommendations Ovarian Cyst Assessment: Patient was previously advised to see a pot lining supervisor for an ovarian cyst but has not followed through with this recommendation. 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 patient have lots of pain from that Refer to gynecology RETURN TO CLINIC: I reviewed the diagnosis, prognosis, and recommended treatment/procedure options with the patient (and/or their legal veterans contact representative), including the potential benefits, risks, side effects and alternative therapies. We also discussed the option of no treatment and the possibility of clinical trial participation, if applicable. All questions were addressed, and they demonstrated understanding. They provided informed consent to proceed with the proposed plan of care. BILLING AND COMPLIANCE: I reviewed external records from providers outside my specialty as summarized above. I spent a total of 50 minutes on this patient?s care on the day of their visit excluding time spent related to any billed procedures. This time includes time spent with the patient as well as time spent documenting in the medical record, reviewing patients records and tests, obtaining history, placing orders, communicating with other healthcare professionals, counseling the patient, family or caregiver, and/or care coordination for the diagnoses above. Electronically Signed by: Gurpreet Guevara MD T: 3:03 AM CC: PCP: Raghu Isaacs Referring: Raghu Isaacs This document was completed utilizing speech recognition software. Grammatical errors, random word insertions, pronoun errors, and incomplete sentences are an occasional consequence of this system due to software limitations, ambient noise, and hardware issues. Any formal questions or concerns about the content, text or information contained within the body of this dictation should be directly addressed to the provider for clarification.
== END 2025-05-09 23:59 | disposition home or self-care (01) ==
LOC: SCTC 13:36
PROVIDERS: PCP Family Medicine; Referring Provider Family Medicine; Visit Provider Internal Medicine Hematology & Oncology
DX: D69.3 Immune thrombocytopenic purpura (principal); B02.29 Other postherpetic nervous system involvement; N83.209 Unspecified ovarian cyst, unspecified side; R79.89 Other specified abnormal findings of blood chemistry
CPT/HCPCS: 99213; G0463